=== PATIENT | female | born 1955 | race Caucasian/White ===

== ENCOUNTER 2017-06-22 20:23 | Observation (INO) ==
[2017-06-22] MEDS ORDERED: Nitroglycerin 0.4 MG TAB.SUBL SL PRN (21:22)
[2017-06-22] MEDS ORDERED: Aspirin 81 MG TAB.CHEW PO ONE (21:22)
[2017-06-22] MEDS ORDERED: 0.9 % Sodium Chloride 1,000 ML IVC ONE (21:23)
--- NOTE | 2017-06-22 21:26 | Emergency Department Note ---
Disposition Clinical Impression: Nausea Chest pain Qualifiers: Chest pain type: unspecified Qualified Code(s): R07.9 - Chest pain, unspecified Disposition: Admitted As Inpatient Condition: Fair Referrals: Suzanna Castro MD [Primary Care Provider] - Forms: ED Satisfaction Letter Time of Disposition: 22:45 Chest Pain HPI - General Chief Complaint: ED Chest Pain Stated Complaint: chest pain Time Seen by Provider: 06/22/17 20:44 Source: patient, family Limitations: no limitations Vital Signs Reviewed: Yes Nursing Notes Reviewed: Yes - History of Present Illness HPI Narrative: Patient is a 61-year-old female with no prior cardiac history complains of chest pain 1 week. Patient states she did have one episode of chest pain 2 weeks ago which her PCP sent her for an echo outpatient. Patient states he found an abnormality and has follow-up with cardiology at [facility] in July. Patient states that one week ago she started having increased chest pressure with lightheadedness, nausea, and diaphoresis intermittently. Patient states her pressure was without radiation. Patient has that same pressure today. Patient states her discomfort 6/10 and constant. Patient states is difficult to take a deep breath secondary to chest fullness. Patient denies any fevers, chills, vomiting, abdominal pain, diarrhea. Patient denies tobacco use, illicit drug use, alcohol use. Severity scale (1-10): 7 - Related Data Home Medications Medication Instructions Recorded Confirmed Aspirin 81 mg PO DAILY 08/23/16 08/23/16 Atorvastatin Calcium [Lipitor] 20 mg PO HS 08/23/16 08/23/16 Levothyroxine [Synthroid] 75 mcg PO 0630 08/23/16 08/23/16 Multivitamin [One Daily Essential] 1 each PO DAILY 08/23/16 08/23/16 Previous Rx's Medication Instructions Recorded Promethazine [Phenergan] 25 mg PO Q6HR PRN #10 tablet 06/21/17 Allergies Allergy/AdvReac Type Severity Reaction Status Date / Time codeine [From Cheratussin AC] AdvReac Insomnia Verified 06/21/17 19:26 [email or web address] AdvReac Insomnia Verified 06/21/17 19:26 [facility] All systems ED: reviewed and negative except as stated. Review of Systems: As Per HPI Constitutional: Reports: chills. Denies: fever, weakness Eyes: Denies: vision change ENT ED: Denies: congestion Cardiovascular: Reports: chest pain, palpitations Respiratory: Denies: cough Gastrointestinal: Reports: nausea. Denies: abdominal pain, vomiting, diarrhea, melena, hematochezia Genitourinary: Denies: urgency, dysuria, frequency, hematuria Chest Pain PMH - Past Medical History Medical history: Reports: hyperlipidemia Psychiatric history: Reports: anxiety - Social History Smoking Status: Never smoker Alcohol use: Reports: rarely Drug use: Reports: none Physical Exam 61-year-old female who is alert and oriented 3 and in no acute distress. Patient has no conversational dyspnea. Patient is nondiaphoretic. Patient appears fairly comfortable at this time - General Limitations: no limitations General appearance: alert, in no apparent distress - Head Head exam: atraumatic, normocephalic, normal inspection - Eye Eye exam: Present: normal appearance, PERRL, EOMI - ENT ENT exam: normal exam - Chest Chest inspection: Present: normal inspection, symmetric chest wall rise - Respiratory Respiratory exam: Present: normal lung sounds bilaterally - Cardiovascular Cardiovascular exam: Present: regular rate, normal rhythm, normal heart sounds - Abdominal Exam Abdominal exam: Present: soft, Non-Tender. Absent: tenderness, distention, guarding, rebound, rigidity - Extremities Exam Extremities exam: Present: normal inspection, full ROM. Absent: tenderness, pedal edema - Expanded Upper Extremity Exam Shoulder exam: Present: normal inspection, full ROM Arm exam: Present: normal inspection, full ROM Elbow exam: Present: normal inspection, full ROM Forearm/Wrist exam: Present: normal inspection, full ROM Hand exam: Present: normal inspection, full ROM Vascular exam: Normal: capillary refill, radial pulse - Expanded Lower Extremity Exam Hip/Pelvis exam: Present: normal inspection, full ROM Upper leg exam: Present: normal inspection, full ROM Knee exam: Present: normal inspection, full ROM Lower leg exam: Present: normal inspection, full ROM Ankle exam: Present: normal inspection, full ROM Foot/toe exam: Present: normal inspection, full ROM Neurovascular/Tendon exam: Absent: motor deficit, sensory deficit, tendon deficit - Back Exam Back exam: Present: normal inspection, full ROM. Absent: tenderness, CVA tenderness (R), CVA tenderness (L), muscle spasm, vertebral tenderness, rashes - Neurological Exam Neurological exam: Present: alert, oriented X3 - Psychiatric Psychiatric exam: Present: normal affect, normal mood - Skin Skin exam: Present: warm, dry, intact, normal color. Absent: cyanosis, diaphoresis, pallor, mottled Course - Reevaluation(s) Reevaluation #1: Labs and imaging ordered Time: 21:28 Vital Signs Temperature 98.1 F 06/22/17 20:25 Pulse Rate 98 06/22/17 20:25 Respiratory Rate 06/22/17 20:25 Blood Pressure 150/85 06/22/17 20:25 O2 Sat by Pulse Oximetry 98 06/22/17 20:25 Temperature 98.1 F 06/22/17 20:25 Pulse Rate 98 06/22/17 20:25 Respiratory Rate 06/22/17 20:25 Blood Pressure 150/85 06/22/17 20:25 O2 Sat by Pulse Oximetry 98 06/22/17 20:25 Oxygen Delivery Oxygen Delivery Room Air Chest Pain - MDM Narrative Medical decision making narrative: Patient is 61-year-old female with history of abnormal echo 2 weeks ago performed secondary to chest pain symptoms that worker from sleep. Patient did have a progressively worsening chest pressure with lightheadedness, diaphoresis and nausea for the past week. Patient has a family history with cardiac DEATHS at young ages in the mother and father. Patient has a history of hyperlipidemia. Patient's worker was completed here. Patient is treated with nitroglycerin and aspirin. Her workup was negative with a negative EKG and negative troponin. Patient accepts admission. Patient was accepted for admission Dr. Thornton has accepted the patient for admission at 2236 hrs. - Lab Data Lab results reviewed: Yes I reviewed the patient's lab results. Lab results narrative: Short CBC 06/22/17 Range/Units 21:57 WBC 5.3 (4.3-11.1) K/mcL Hgb 13.0 (11.5-15.4) g/dL Hct 41.9 (35.3-44.9) % Plt Count 272 (140-400) K/mcL Neutrophils # 2.5 (1.6-8.9) K/mcL BMP 06/22/17 Range/Units 21:57 Sodium 140 (136-145) mEq/L Potassium 3.8 (3.5-4.5) mEq/L Chloride 105 (98-109) mEq/L Carbon Dioxide 26 (19-29) mEq/L BUN 13 (7-20) mg/dL Creatinine 0.80 (0.57-1.11) mg/dL Glucose 106 H (70-99) mg/dL Calcium 9.9 (8.6-10.8) mg/dL Cardiac Enzymes 06/22/17 Range/Units 21:57 Troponin I 0.00 (0-0.03) ng/mL Result diagrams: 06/22/17 21:57 06/22/17 21:57 Lab Results 06/22/17 06/22/17 06/22/17 Range/Units 21:57 21:57 21:57 WBC 5.3 (4.3-11.1) K/mcL RBC 4.74 (3.82-4.97) M/mcL Hgb 13.0 (11.5-15.4) g/dL Hct 41.9 (35.3-44.9) % MCV 88.4 (83.0-100.0) fL MCH 27.4 L (28.0-33.3) pg MCHC 31.0 L (31.6-35.5) g/dL RDW 12.3 (11.5-14.5) % Plt Count 272 (140-400) K/mcL MPV 9.3 L (9.4-12.4) fL Immature Gran % 0.0 (0-4) % Seg Neutrophils % 46.1 % Lymphocytes % 38.8 % Monocytes % 10.1 % Eosinophils % 4.3 % Basophils % 0.7 % Neutrophils # 2.5 (1.6-8.9) K/mcL Lymphocytes # 2.1 (0.6-4.6) K/mcL Monocytes # 0.5 (0.0-1.3) K/mcL Eosinophils # 0.2 (0.0-0.6) K/mcL Basophils # 0.0 (0.0-0.2) K/mcL APTT 28.8 (26.0-36.0) Seconds D-Dimer 255 (0-500) ng/mLFEU Sodium 140 (136-145) mEq/L Potassium 3.8 (3.5-4.5) mEq/L Chloride 105 (98-109) mEq/L Carbon Dioxide 26 (19-29) mEq/L BUN 13 (7-20) mg/dL Creatinine 0.80 (0.57-1.11) mg/dL Est GFR ( Amer) > 60 (> 60) Est GFR (Non-Af Amer) > 60 (> 60) BUN/Creatinine Ratio 16 (6-26) Glucose 106 H (70-99) mg/dL Calculated Osmolality 291 (280-300) Calcium 9.9 (8.6-10.8) mg/dL Troponin I (0-0.03) ng/mL 06/22/17 Range/Units 21:57 WBC (4.3-11.1) K/mcL RBC (3.82-4.97) M/mcL Hgb (11.5-15.4) g/dL Hct (35.3-44.9) % MCV (83.0-100.0) fL MCH (28.0-33.3) pg MCHC (31.6-35.5) g/dL RDW (11.5-14.5) % Plt Count (140-400) K/mcL MPV (9.4-12.4) fL Immature Gran % (0-4) % Seg Neutrophils % % Lymphocytes % % Monocytes % % Eosinophils % % Basophils % % Neutrophils # (1.6-8.9) K/mcL Lymphocytes # (0.6-4.6) K/mcL Monocytes # (0.0-1.3) K/mcL Eosinophils # (0.0-0.6) K/mcL Basophils # (0.0-0.2) K/mcL APTT (26.0-36.0) Seconds D-Dimer (0-500) ng/mLFEU Sodium (136-145) mEq/L Potassium (3.5-4.5) mEq/L Chloride (98-109) mEq/L Carbon Dioxide (19-29) mEq/L BUN (7-20) mg/dL Creatinine (0.57-1.11) mg/dL Est GFR ( Amer) (> 60) Est GFR (Non-Af Amer) (> 60) BUN/Creatinine Ratio (6-26) Glucose (70-99) mg/dL Calculated Osmolality (280-300) Calcium (8.6-10.8) mg/dL Troponin I 0.00 (0-0.03) ng/mL - Radiology Data Radiology results reviewed: Yes I reviewed the patient's radiology results. Chest X-Ray 06/22/17 21:20 IMPRESSION: No acute process. D/ / Braulio Rivera MD / Braulio Rivera MD Interpreting Provider: Braulio Rivera MD - EKG Data EKG attestation: Yes I reviewed and interpreted this EKG. EKG results narrative: EKG taken 06/22/2017 at 2030 hrs. shows sinus rhythm at a rate of 93 beats minute with no acute ST elevations or depressions in any leads. Previous EKG taken 06/21/2017 also shows sinus rhythm at a rate of 94 beats minute. Also no signs of ischemia Heart Score - Score History: Slightly Suspicious EKG: Normal Age: 45-65 Risk Factors: 1-2 risk factors Troponin: Less than normal limit HEART Score Total: 2 Attestation Statement - Attestation Attestation: Patient was seen with resident physician. I reviewed the history, physical, assessment and plan, and agree with the findings. I also personally evaluated this patient and had [id number] time with this patient. 61-year-old female presents to the emergency department with chest pain. Patient has had chest pain for 1 week consistently, and initially had an episode 2 weeks ago which prompted an echocardiogram. She said she had neck that was normal and a Holter monitor that was abnormal but she is not sure the definitive results. She says that for the last week though she has had intermittent chest pain episodes or pressure sensation in the middle of her chest started off lasting 2-5 minutes and last upwards of 30 minutes they are worse with exertion. They are associated with getting pale and diaphoretic she has not had nausea or vomiting no diarrhea no fevers no cough. On examination vital signs are stable she is mildly tachycardic. ENT is unremarkable. Heart regular rhythm and rate. Lungs clear. Abdomen soft and nontender. Extremities unremarkable there is no pedal edema. Neurologically this patient is intact. ED course initial workup revealed a normal EKG. Troponin was negative. And other labs are unremarkable. Patient does have a family history negative good story for ACS. She is given an aspirin. We will admit her to the hospital for further evaluation and treatment for formal rule out. Hospitalist was notified. Agree with resident physician assessment and plan.
[2017-06-22] MEDS ORDERED: *HR* Metoprolol 5 MG/5 ML VIAL IVP SCH (21:45)
[2017-06-22 22:08] LABS: Basophils % 0.7 %; Eosinophils # 0.2 K/mcL (0.0-0.6); Eosinophils % 4.3 %; Hematocrit 41.9 % (35.3-44.9); Lymphocytes # 2.1 K/mcL (0.6-4.6); Lymphocytes % 38.8 %; Mean Corpuscular Hemoglobin 27.4 pg (28.0-33.3); Mean Corpuscular Volume 88.4 fL (83.0-100.0); Mean Platelet Volume 9.3 fL (9.4-12.4); Monocytes # 0.5 K/mcL (0.0-1.3); Monocytes % 10.1 %; Neutrophils # 2.5 K/mcL (1.6-8.9); Platelet Count 272 K/mcL (140-400); Red Blood Count 4.74 M/mcL (3.82-4.97); Red Cell Distribution Width 12.3 % (11.5-14.5); Segmented Neutrophils % 46.1 %
[2017-06-22 22:13] LABS: Activated Partial Thrombo Time 28.8 Seconds (26.0-36.0)
[2017-06-22 22:23] LABS: BUN/Creatinine Ratio 16 (6-26); Blood Urea Nitrogen 13 mg/dL (7-20); Calcium 9.9 mg/dL (8.6-10.8); Carbon Dioxide 26 mEq/L (19-29); Chloride 105 mEq/L (98-109); Glucose 106 mg/dL (70-99); Osmolality,Calculated 291 (280-300); Potassium 3.8 mEq/L (3.5-4.5); Sodium 140 mEq/L (136-145); eGFR For African Americans > 60 (> 60); eGFR For Non-African Americans > 60 (> 60)
[2017-06-23] MEDS ORDERED: *HR* Morphine 2 MG/ML SYRINGE IVP PRN (00:05)
[2017-06-23] MEDS ORDERED: Ondansetron 4 MG/2 ML VIAL IVP PRN (00:05)
[2017-06-23] MEDS ORDERED: Naloxone 0.4 MG/ML INJ IVP PRN (00:05)
[2017-06-23] MEDS ORDERED: Acetaminophen 325 MG TABLET PO PRN (00:05)
--- NOTE | 2017-06-23 00:20 | Internal Med History&Physical ---
Date of Encounter: 06/23/17 Time of Encounter: 00:30 Assessment and Plan (1) Chest pain Current visit: Yes Status: Acute Atypical chest pain - rule out ACS Continue Aspirin, Statin, Nitroglycerin as needed for chest pain Troponin - 0.00, cycle troponin BN peptide < 10 EKG - normal sinus rhythm with no acute ST-T changes Chest x-ray - no acute process Echocardiogram and stress test - pending Cardiac telemetry, continue to monitor closely Qualifiers: Chest pain type: unspecified Qualified Code(s): R07.9 - Chest pain, unspecified (2) Hyperlipidemia Current visit: Yes Status: Acute Continue Lipitor Qualifiers: Hyperlipidemia type: unspecified Qualified Code(s): E78.5 - Hyperlipidemia , unspecified (3) Hypothyroidism Current visit: Yes Status: Chronic Continue home dose Levothyroxine Qualifiers: Hypothyroidism type: unspecified Qualified Code(s): E03.9 - Hypothyroidism , unspecified (4) DVT prophylaxis Current visit: Yes Status: Acute Continue Heparin subcutaneous Internal Medicine - H&P: HPI Chief complaint: Chest pain Admitted From: Emergency Dept Plans for Post Hospital Care: Home History of present illness: Ms. Galvez is a 61 year old female with past medical history of hypothyroidism, anxiety and hyperlipidemia. Patient presents to the ED with complaints of chest pain. Examined in the room. Patient is awake and alert. Not in any distress. Able to provide all history. Family members are at bedside. Patient states she developed substernal chest pain and pressure initially about 1-2 days ago. She initially went to the urgent care. She was advised to go to the ER if her symptoms worsen. Patient states she developed chest pain again earlier this evening. She describes it as chest pressure which was constant. Initial pain was 7 out of 10, now she states it is 2 out of 10. No aggravating or alleviating factors. She says symptoms have now improved. No other associated symptoms. Denies shortness of breath or palpitations or dizziness or headache. Denies fever or vomiting or diarrhea or abdominal pain. No other acute complaints. Patient also mentions that about 2 weeks ago she had a Holter monitor placed by her primary care physician for episodes of tachycardia and palpitations. Patient and family members are not sure about what she was diagnosed with. She has been advised to follow-up with a planner chief at [facility]. Initial workup in the ED is negative. EKG shows sinus rhythm with no acute ST- T changes. Troponin is negative. Chest x-ray does not show any acute process. Patient is being admitted for chest pain to rule out ACS. Stress test and echocardiogram are pending. Past Med Surg Social Fam HX - Past Medical History Medical history: hyperlipidemia Psychiatric history: anxiety - Past Surgical History Surgical History: other (Tonsillectomy, oophorectomy) - Social History Smoking Status: Never smoker Smokeless Tobacco Status: No Alcohol use: rarely Drug use: none - Family History Mother Living Status: Age at : 52 Cause of : heart related Hx Family Cardiac Disorders: Yes Father Living Status: Cause of : heart attack Sister Living Status: Still Living Hx Family Cardiac Disorders: Yes (heart attack) Internal Medicine - H&P: Meds Aspirin 81 mg PO DAILY 08/23/16 [History] Levothyroxine [Synthroid] 75 mcg PO 0630 08/23/16 [History] Multivitamin [One Daily Essential] 1 each PO DAILY 08/23/16 [History] Diclofenac Sodium [Voltaren] 100 gm TP DAILY 06/23/17 [History] Simvastatin [Zocor] 20 mg PO DAILY 06/23/17 [History] 3 Allergy/AdvReac Type Severity Reaction Status Date / Time codeine [From Cheratussin ] AdvReac Insomnia Verified 06/21/17 19:26 [email or web address] AdvReac Insomnia Verified 06/21/17 19:26 [facility] All Systems PM: A 10-system review of systems was performed and is negative for pertinent findings except as documented above in the HPI. - Constitutional Constitutional: no fatigue, no fever(s), no weakness - EENT Eyes: no blurry vision - Cardiovascular Cardiovascular ROS IM: chest pain, palpitations, no diaphoresis, no dyspnea, no dyspnea on exertion, no edema, no lightheadedness, no orthopnea, no paroxysmal nocturnal dyspnea, no syncope - Respiratory Respiratory: no cough, no dyspnea, no hemoptysis, no dyspnea on exertion, no wheezing, no chest congestion - Gastrointestinal Gastrointestinal: no abdominal pain, no bloating, no cramping, no diarrhea, no hematemesis, no hematochezia, no loose stools, no melena, no vomiting - Genitourinary Genitourinary: no dysuria - Musculoskeletal Musculoskeletal ROS IM: no back pain - Neurological Neurological ROS: no confusion, no dizziness, no loss of vision, no numbness, no tingling - Constitutional Vitals: Temp Pulse Resp BP Pulse Ox 98.1 F 98 16 121/73 98 06/22/17 20:25 06/22/17 20:25 06/23/17 00:19 06/23/17 00:19 06/22/17 20:25 General appearance: Present: cooperative, A&O X 3, pleasant, no acute distress, answers questions appropriately - Head Head exam: Present: atraumatic - Eye Eye exam: Present: EOMI - ENT ENT exam: Present: mucous membranes moist - Respiratory Respiratory exam: Present: CTAB. Absent: rales, rhonchi, wheezes, tachypnea - Cardiovascular Cardiovascular exam: Present: RRR, +S1, +S2 - GI/Abdominal GI/Abdominal exam: Present: soft. Absent: distended, firm, guarding, tenderness - Extremities Exam Extremities exam: Present: radial pulses palpable and symmetrical. Absent: calf tenderness, cyanotic, pedal edema - Neurological Exam Neurological exam: Present: alert, oriented X3, no focal deficits. Absent: facial droop, speech deficit Internal Med - H&P Results - Labs CBC & Chem 7: 06/22/17 21:57 06/23/17 00:46
[2017-06-23] MEDS ORDERED: *HR* LORazepam 0.5 MG TABLET PO ONE (01:17)
[2017-06-23 01:45] LABS: BUN/Creatinine Ratio 15 (6-26); Blood Urea Nitrogen 12 mg/dL (7-20); Calcium 9.4 mg/dL (8.6-10.8); Carbon Dioxide 27 mEq/L (19-29); Chloride 106 mEq/L (98-109); Chol/HDL Ratio 3.2 (0-4.9); Cholesterol 222 mg/dL (< 200); Glucose 110 mg/dL (70-99); HDL Cholesterol 69 mg/dL (40-59); LDL Cholesterol,Calculated 137 mg/dL (0-99); Magnesium 2.1 mg/dL (1.6-2.6); Osmolality,Calculated 294 (280-300); Potassium 3.7 mEq/L (3.5-4.5); Sodium 142 mEq/L (136-145); Triglycerides 80 mg/dL (< 150); eGFR For African Americans > 60 (> 60); eGFR For Non-African Americans > 60 (> 60)
[2017-06-23] MEDS ORDERED: Famotidine 20 MG/2 ML VIAL IVP SCH (06:00)
[2017-06-23] MEDS ORDERED: *HR* Heparin 5,000 UNIT/ML VIAL SQ SCH (06:00)
[2017-06-23] MEDS ORDERED: Regadenoson 0.4 MG/5 ML SYRINGE IVP ONE (07:43)
[2017-06-23] MEDS ORDERED: Multivit/Ca/Min/Fe/FA 1 TAB TABLET PO SCH (09:00)
[2017-06-23] MEDS ORDERED: Aspirin 81 MG TAB.CHEW PO SCH (09:00)
--- NOTE | 2017-06-23 11:26 | Nuclear Medicine Stress Report ---
Regadenoson Nuclear Stress Name: Caitie Galvez Date of Study: 06/23/2017 Date: 1955 Ht: 66.0 in Medical Record#: [id number] Age: 61 Wt: 137.0 lb Gender: Female Order #: [id number] Location: [facility] Room: [facility] Supervising Provider: Silvia Nevarez CNP Reading Physician: Donte Ochoa DO, FACC, [facility] Ordering Physician: Anjelica Cuellar CNP Primary Care Physician: Suzanna Castro MD Stress Technologist: Jacobo Branch, COST REPORT CLERK, CCT Dental Detail Representative: Irving Sprague Indications: Chest Pain Impression: Exercise ECG is negative for ischemia. The exercise capacity was good. No chest discomfort reported. Gated EF = 74%. Small sized, mild intensity, fixed apex perfusion defect. Wall motion is normal. Findings are consistent with artifact. Perfusion imaging was negative for ischemia or infarct. History: Hypercholesteremia Stress Test Summary: Stress Test Type: Treadmill Protocol: Yves Baseline Information: Initial Heart Rate: 89 Blood Pressure: 130/80 Stress Information: Stress Time: 8 min 00 sec Test Terminated Due to (primary): Dyspnea Maximum Blood Pressure: 156/80 Maximum Heart Rate: 152 Percent Maximum Heart Rate Achieved: 95 Double Product: 23,712 METS Reached: 10.1 Nuclear Summary: SPECT myocardial perfusion imaging using Tc99m Sestamibi given intravenously was performed at rest and following cardiac stress testing. The resting images were obtained following initial dose of 10.9 mCi. Following stress an additional dose of 33.2 mCi was given at peak exercise or 30 seconds post regadenoson infusion. Medication Given: Time Medication Dose Units Route Findings: Stress Note * Resting ECG demonstrated normal sinus rhythm. * No baseline arrhythmias were noted. * Exercise ECG is negative for ischemia. * Rare PVCs noted during stress. * The exercise capacity was good. No chest discomfort reported. * Normal hemodynamic responses to exercise. Study Quality * Study quality is average. Gated EF % * Gated EF = 74%. Left Ventricle * The left ventricle is not dilated. LVEDV = 54 mL. * Normal wall motion. Apical Perfusion Rest * The apex segment shows a mild reduction in perfusion. Apical Perfusion Stress * The apex segment shows a mild reduction in perfusion. TID * No evidence of transient ischemic dilatation. TID ratio = 1.13. Lung Uptake * There is no evidence of increase lung uptake. Updated by Donte Ochoa DO, ARACELI, NIGHAT, LAURIE on 06/23/2017 11:19:59 AM electronically signed on 06/23/2017 11:21:18 AM with status of Final
[2017-06-23 11:37] VITALS: BP 109/69
--- NOTE | 2017-06-23 14:55 | Discharge Summary ---
Date of Encounter: 06/23/17 Time of Encounter: 14:15 - Discharge Diagnosis (1) Chest pain Priority: Primary Status: Acute Comments: He reports substernal pressure with some nausea, no radiation. She denies diaphoresis or shortness of breath. Pressure is intermittent and happens at night. She notices no symptoms during the day when she is busy and up working. She reports racing heart that awakens her up during the night with associated insomnia. Chest x-ray is negative for any acute process. EKG is normal sinus rhythm with no acute changes, troponins were negative 3. Patient recently had a Holter monitor that showed normal sinus rhythm as baseline with rare PACs and occasional PVCs, there was one nonsustained episode of SVT, most likely atrial tachycardia no pauses and no ventricular arrhythmias, and no times reported symptoms. Patient is being referred to cardiology at [employer] where she works, she has appointment on July 25. Stress test today was negative for ischemia or infarct with a gaited EF of 74%. Patient had an echocardiogram on June 07 with a preserved EF, mild LVDD and no significant valvular dysfunction. It is not reproducible with palpation, movement, or deep inspiration. 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 I believe that the palpitations racing heart and nausea with associated insomnia are related to anxiety. Patient is agreeable to trying an antidepressant. She will follow up with primary care and cardiology as scheduled. Qualifiers: Chest pain type: unspecified Qualified Code(s): R07.9 - Chest pain, unspecified (2) Anxiety Priority: Secondary Status: Acute Comments: Patient will try Celexa. (3) Nausea Priority: Secondary Status: Acute Comments: Denies currently. Occurs with the midsternal chest pressure. (4) Hyperlipidemia Priority: Secondary Status: Chronic Comments: Chronic. Continue statin. Qualifiers: Hyperlipidemia type: unspecified Qualified Code(s): E78.5 - Hyperlipidemia , unspecified (5) DVT prophylaxis Priority: Secondary Status: Acute Comments: Heparin subcutaneous. (6) Hypothyroidism Priority: Secondary Status: Chronic Comments: Chronic. Continue home medication. Qualifiers: Hypothyroidism type: unspecified Qualified Code(s): E03.9 - Hypothyroidism , unspecified - Discharge Medications Prescriptions: Citalopram Hydrobromide [Celexa] 20 mg PO DAILY #30 tab Home Medications: Aspirin 81 mg PO DAILY 08/23/16 [History] Levothyroxine [Synthroid] 75 mcg PO 0630 08/23/16 [History] Multivitamin [One Daily Essential] 1 each PO DAILY 08/23/16 [History] Citalopram Hydrobromide [Celexa] 20 mg PO DAILY #30 tab 06/23/17 [Rx] Diclofenac Sodium [Voltaren] 1 appl TP DAILY 06/23/17 [History] Gabapentin [Neurontin] 300 mg PO HS PRN 06/23/17 [History] Simvastatin [Zocor] 20 mg PO DAILY 06/23/17 [History] Allergies/Adverse Reactions: 3 Allergy/AdvReac Type Severity Reaction Status Date / Time codeine [From [facility]] AdvReac Insomnia Verified 06/23/17 10:19 [email or web address] AdvReac Insomnia Verified 06/23/17 10:19 [From [facility]] Procedures/tests Complete & Pending: Procedures Performed prior 72 hours Category Date Time Status NM domingo perf SPECT multi [NM] Routine Exams 06/23/17 00:09 Taken ECG 12 lead ECG [ECG] AM 0600 Y 06/23/17 06:00 Ordered ECG 12 lead ECG [ECG] Routine Y 06/21/17 19:23 Completed SP exercise nuclear stress Routine Y 06/23/17 00:09 Completed Date of admission: 06/23/17 00:00 Primary care physician: Suzanna Ruiz Discharging clinician: Anjelica Cuellar Anticipated date of discharge: 06/23/17 - Patient Status Disposition: Home, Self-Care Condition: Good Functional capacity at discharge: independent ambulation Overall status at discharge: patient is back to baseline - Discharge Instructions Follow Up With: Suzanna Castro MD [Primary Care Provider] - Additional Instructions: Follow with your PCP in the next 7-10 days for a follow up visit. Take your normal medications and start the Celexa when you are ready. Return to your normal activities as tolerated. Return to the ER as needed for any other problems or concerns or if your symptoms return or worsen. - Diet and Activity Activity: increase activity as tolerated Diet: advance to your usual diet Hospital course: Ms. Galvez is a 61 year old female with past medical history of hypothyroidism, anxiety and hyperlipidemia. Patient presents to the ED with complaints of chest pain. Patient states she developed substernal chest pain and pressure about 1-2 days ago, she went to urgent care was advised to go to the emergency room if her symptoms worsen. She states she developed chest pain again earlier in the evening of admission and described it as chest pressure without radiation , with associated nausea. There were no deviating or aggravating factors. She denies shortness of breath or palpitations, no dizziness lightheadedness or headache. She denies fever, vomiting diarrhea or abdominal pain. Patient wore Holter monitor about 2 weeks ago that was primarily negative other than one run of atrial tachycardia. She is going to see [employer] cardiology on July 25. She is employed at [employer]. Patient reports chest pain that awakens her during the night, describes it as a pressure, then she feels as if her heart is racing and she has associated insomnia. I believe that this is anxiety and have given her prescription for Celexa. She is hesitant to take it and states she will take the prescription and think about it. Troponins were negative 3. Chest x-ray was negative. Echocardiogram on 06/07 showed LVEF of 60-65% with mild LV DD no significant valvular dysfunction. Stress test today I gated EF of 74% was negative for ischemia or infarct. Patient is not having chest pain currently is not reproducible with palpation and movement or deep inspiration. This pain is I feel, most likely due to anxiety. Patient works in a very stressful environment, at bedside says the patient is always stressed out and anxious. She will follow-up with her primary care physician in the next week or so, as well as cardiology at [employer] on July 25. I have encouraged her to try the Celexa and return to the emergency department after symptoms return or worsen. Her labs are within normal limits and stable, her vital signs are stable and within normal limits. Patient is appropriate for discharge. - Time Spent with Patient Total time spent providing and/or coordinating discharge services: Less than 30 minutes - Constitutional Vitals: Temp Pulse Resp BP Pulse Ox 98.0 F 88 15 109/69 97 06/23/17 11:35 06/23/17 11:35 06/23/17 11:35 06/23/17 11:35 06/23/17 11:35 General appearance: Present: cooperative, A&O X 3, pleasant, no acute distress, answers questions appropriately - Head Head exam: Present: atraumatic, normal inspection, normocephalic - Eye Eye exam: Present: normal appearance, conjuntiva pink, sclera anicteric - Neck Neck exam general surgery: Present: normal inspection, supple, trachea midline. Absent: lymphadenopathy, tenderness, thyromegaly - Respiratory Respiratory exam: Present: CTAB. Absent: accessory muscle use, rales, rhonchi, wheezes - Cardiovascular Cardiovascular exam: Present: RRR, +S1, +S2. Absent: diastolic murmur, gallop, rubs, systolic murmur - GI/Abdominal GI/Abdominal exam: Present: normal bowel sounds, soft. Absent: distended, hepatomegaly, tenderness - Extremities Exam Extremities exam: Present: normal capillary refill, warm, radial pulses palpable and symmetrical. Absent: calf tenderness, cyanotic, pedal edema - Neurological Exam Neurological exam: Present: alert, oriented X3, no focal deficits. Absent: facial droop, speech deficit - Skin Skin exam: Present: dry, intact, normal color, warm. Absent: rash
--- NOTE | 2017-06-24 21:31 | Electrocardiograph Report ---
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
--- NOTE | 2017-06-24 21:50 | Electrocardiograph Report ---
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
== END 2017-06-23 15:58 | disposition home or self-care (01) ==
LOC: 3BNU 20:23 → EMEROO 20:23 → 3BNU 06-23 00:35
PROVIDERS: ADMIT Family Medicine; ATTEND Registered Nurse